=== PATIENT | male | born 1990 | race Caucasian/White ===

== ENCOUNTER 2017-04-15 13:58 | Emergency (ER) | payer OTHER ==
[~2017-04-15] VITALS: Ht 157.5 cm; Wt 115.7 kg
--- NOTE | ~2017-04-15 | CR170 ---
[facility]. [facility] A Service of [facility] & [facility] RADIOLOGY TEXT RESULTS PATIENT: KARELY JOHNSTON LOCATION: SED : 89 UNIT #: [id number] AGE: [address]: Chencho Santiago MD SEX: M ORDER DR: [id number] [place] [id number] E MR#: [id number] Acc #: [id number] NAME: KARELY JOHNSTON : 1990 SEX: M STUDY DATE/TIME: 04/15/2017 16:36 UNIT: SED ROOM: STUDY DESCRIPTION: CR Knee 2 Views Rt Attending Physician: Chencho Santiago M.D. Ordering Physician: Chencho Santiago M.D. Primary Care Physician: Katerin Irving M.D. MEDICAL IMAGING REPORT This report is preliminary unless electronic signature is present. EXAM 2 views of the right knee, 04/15/2017 HISTORY Right knee pain and redness today after falling. COMPARISON None FINDINGS AP and lateral projection of the knee shows smooth articular anatomy without indication of fracture or dislocation at the major weight-bearing surface of the knee. There is no indication of radiopaque foreign body about the knee surface or joint effusion. IMPRESSION Normal right knee. Dictated by... Sara Xavier M.D. THIS IS AN ELECTRONICALLY VERIFIED REPORT Sara Xavier M.D. at 04/17/2017 9:51 AM HU/joan TD: 04/16/2017 12:59 JOB #: [id number] MEDICAL IMAGING REPORT Page 1 of 1
--- NOTE | ~2017-04-15 | CT71 ---
[facility]. [facility] A Service of [facility] & [facility] RADIOLOGY TEXT RESULTS PATIENT: KARELY JOHNSTON LOCATION: SED : 89 UNIT #: [id number] AGE: [address]: Chencho Santiago MD SEX: M ORDER DR: [id number] [place] [id number] E MR#: [id number] Acc #: [id number] NAME: KARELY JOHNSTON : 1990 SEX: M STUDY DATE/TIME: 04/15/2017 15:05 UNIT: SED ROOM: STUDY DESCRIPTION: CT Head Wo Contrast Attending Physician: Chencho Santiago M.D. Ordering Physician: Chencho Santiago M.D. Primary Care Physician: Katerin Irving M.D. MEDICAL IMAGING REPORT This report is preliminary unless electronic signature is present. EXAM Noncontrast CT head, 04/15/2017 at 15:34 HISTORY Fell today at 03:00 with laceration to the nose, head and neck pain, abrasion to the mid forehead. Autistic with mental retardation. History of seizures. COMPARISON Noncontrast CT head, 09/06/[address] exam was performed with one or more of the following radiation dose reduction techniques: Automatic exposure control, adjustment of mA and/or kV according to patient size and iterative reconstruction. FINDINGS Study is limited by patient motion. This necessitated repeated attempts at imaging. Given the motion degradation, no gross acute intracranial hemorrhage, mass lesion, mass effect, midline shift or acute infarct is seen. Right parietal approach catheter crosses midline with the tip terminating in the left lateral ventricular body. The degree of ventricular prominence appears unchanged from 09/06/2015. 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 No gross displaced acute calvarial fracture is identified, and the imaged major paranasal sinuses and paranasal sinuses and mastoid air cells are clear. IMPRESSION 1. The study is significantly degraded by motion despite repeated STS. [facility] A Service of [facility] RADIOLOGY TEXT RESULTS PATIENT: KARELY JOHNSTON LOCATION: SED : 89 UNIT #: [id number] AGE: [address]: Chencho Santiago MD SEX: M ORDER DR: attempts at imaging, but no gross acute intracranial abnormality is identified. 2. 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 This can be correlated to the patient's known history of previous imaging studies. 3. The ventriculostomy catheter appears unchanged in position, and the degree of ventricular prominence appears stable since 09/06/2015. Dictated by... Sara Xavier M.D. THIS IS AN ELECTRONICALLY VERIFIED REPORT Sara Xavier M.D. at 04/17/2017 9:52 AM Jaiden TD: 04/16/2017 12:31 JOB #: [id number] MEDICAL IMAGING REPORT Page 1 of 1
--- NOTE | ~2017-04-15 | CT52 ---
[facility]. [facility] A Service of [facility] RADIOLOGY TEXT RESULTS PATIENT: KARELY JOHNSTON LOCATION: SED : 89 UNIT #: [id number] AGE: [address]: Chencho Santiago MD SEX: M ORDER DR: [id number] [place] [id number] E MR#: [id number] Acc #: [id number] NAME: KARELY JOHNSTON : 1990 SEX: M STUDY DATE/TIME: 04/15/2017 15:38 UNIT: SED ROOM: STUDY DESCRIPTION: CT Cervical Spine Wo Cont Attending Physician: Chencho Santiago M.D. Ordering Physician: Chencho Santiago M.D. Primary Care Physician: Katerin Irving M.D. MEDICAL IMAGING REPORT This report is preliminary unless electronic signature is present. EXAM CT cervical spine, 04/15/2017 HISTORY Fall. Trauma, fell today at 03:00. Laceration to nose, head. Neck pain. Abrasion to mid forehead. TECHNIQUE CT cervical spine performed. Bone and soft tissue windows reviewed. Sagittal and coronal reconstructions performed. This CT exam was performed with one or more of the following radiation dose reduction techniques: Automatic exposure control, adjustment of mA and/or kV according to patient size and iterative reconstruction. FINDINGS Visualized portions of brain unremarkable. Visualized nasopharyngeal, oropharyngeal, pharyngeal mucosal, retropharyngeal spaces, larynx subglottic airway, superior mediastinum, lung apices, thyroid, submandibular and parotid glands unremarkable. Incompletely visualized ventriculoperitoneal shunt right neck and anterior thorax. Electrodes implanted in the left neck probably vagal stimulators. Correlate clinically. Straightening of the normal cervical lordosis. No traumatic fracture or malalignment. Facet joint relationships normal. Vertebral body heights normal. Mild narrowing of the intervertebral disc spaces. There is no spinal stenosis. No significant disc bulge. The neural foramina are patent without evidence of exiting nerve impingement. IMPRESSION 1. No traumatic fracture or malalignment. Mild intervertebral disc degenerative changes with no spinal stenosis or neural foraminal narrowing. [facility] A Service of [facility] RADIOLOGY TEXT RESULTS PATIENT: KARELY JOHNSTON LOCATION: SED : 89 UNIT #: [id number] AGE: [address]: Chencho Santiago MD SEX: M ORDER DR: 2. No traumatic appearing paraspinal soft tissue abnormality. Partially visualized right ventriculoperitoneal shunt and probable left vagal stimulator. Correlate with history. Dictated by... Jarred Castro M.D. THIS IS AN ELECTRONICALLY VERIFIED REPORT Jarred Castro M.D. at 04/17/2017 4:57 PM Fartun TD: 04/16/2017 12:50 JOB #: [id number] MEDICAL IMAGING REPORT Page 1 of 1
--- NOTE | ~2017-04-15 | CT101 ---
[facility]. [facility] A Service of [facility] & [facility] RADIOLOGY TEXT RESULTS PATIENT: KARELY JOHNSTON LOCATION: SED : 89 UNIT #: [id number] AGE: [address]: Chencho Santiago MD SEX: M ORDER DR: [id number] [address] [address] [id number] E MR#: [id number] Acc #: [id number] NAME: KARELY JOHNSTON : 1990 SEX: M STUDY DATE/TIME: 04/15/2017 15:34 UNIT: SED ROOM: STUDY DESCRIPTION: CT Maxillofacial Area Wo Cont Attending Physician: Chencho Santiago M.D. Ordering Physician: Chencho Santiago M.D. Primary Care Physician: Katerin Irving M.D. MEDICAL IMAGING REPORT This report is preliminary unless electronic signature is present. EXAM Maxillofacial area CT, 04/15/2017 HISTORY Trauma. Fall today at 03:00 hours. Laceration to nose, head and neck pain, abrasion to mid forehead. TECHNIQUE CT facial bones performed. Bone and soft tissue windows reviewed. Sagittal and coronal reconstructions performed. This CT exam was performed with one or more of the following radiation dose reduction techniques: Automatic exposure control, adjustment of mA and/or kV according to patient size and iterative reconstruction. FINDINGS: Please see today's dedicated CT head for full discussion of intracranial findings. The visualized portions of brain are unremarkable. Intraorbital soft tissues unremarkable. Visualized nasopharyngeal, oropharyngeal, pharyngeal mucosal, retropharyngeal spaces unremarkable. Linear subcutaneous densities in the left neck are of unclear exact etiology. They are favored to be chronic in time course and to represent some form of electrode. Please correlate with patient's history. The facial soft tissues show mild soft tissue swelling in the midline forehead. No definite soft tissue defect, subcutaneous air or post-traumatic radiodense foreign body. The intraorbital soft tissues are unremarkable. Bones of calvaria intact. The nasal bones are intact. The bony orbits are intact. Nasal septum deviates slightly to the left. The ostiomeatal complexes are patent. The zygomas, zygomatic arches, pterygoid plates are intact. The mandible is intact. Scattered dental hardware. Visualized cervical spine unremarkable. [facility]. [facility] A Service of [facility] & [facility] RADIOLOGY TEXT RESULTS PATIENT: KARELY JOHNSTON LOCATION: SED : 89 UNIT #: [id number] AGE: [address]: Chencho Santiago MD SEX: M ORDER DR: 1. No evidence of traumatic fracture or malalignment. 2. Mild soft tissue swelling central forehead. 3. No soft tissue defect, subcutaneous air or post-traumatic radiodense foreign body is seen. 4. Linear radiodensity in the soft tissues of the inferior left neck. Most likely some form of electrode. Correlate with patient's history. Dictated by... Jarred Castro M.D. THIS IS AN ELECTRONICALLY VERIFIED REPORT Jarred Castro M.D. at 04/17/2017 4:57 PM GUCCI/joan TD: 04/16/2017 12:41 JOB #: [id number] MEDICAL IMAGING REPORT Page 1 of 1
[~2017-04-15 13:58] MED LIST: ACETAMINOPHEN PO; BENADRYL PO; BUSPIRONE HCL10 M1 PO; FLORINEF0.1 M1 PO; KEPPRA1000 MG PO; KLONOPIN0.5 MG PO; LEVOXYL75 MC1 PO; MELATONIN10 M1 PO; PROZAC10 M1 PO; TENEX1 M1 PO; TOPIRAMATE100 MG PO; TRILEPTAL600 MG PO
== END 2017-04-15 17:22 | disposition home or self-care (01) ==
LOC: SED 13:58
DX: S09.90XA Unspecified injury of head, initial encounter (principal); S00.83XA Contusion of other part of head, initial encounter; S00.31XA Abrasion of nose, initial encounter; Z88.8 Allergy status to other drugs, medicaments and biological substances; Z79.899 Other long term (current) drug therapy; W19.XXXA Unspecified fall, initial encounter
CPT/HCPCS: 29530; 70450; 70486; 72125; 73560; 99284